=== PATIENT | male | born 1975 | race Caucasian/White ===

== ENCOUNTER 2019-02-03 02:49 | Emergency (ER) | payer OTHER ==
[~2019-02-03] VITALS: Ht 175.3 cm; Wt 68.0 kg
[2019-02-03] MEDS ORDERED: DEPRESSION MED (03:14)
[2019-02-03] MEDS ORDERED: LIPITOR10 MG (03:14)
[2019-02-03 03:39] LABS: ABSOLUTE EOSINOPHILS 0.4 thou/uL (0.0-0.7); ABSOLUTE LYMPHOCYTES 1.8 thou/uL (0.8-5.3); ABSOLUTE MONOCYTES 0.5 thou/uL (0.0-1.2); ABSOLUTE NEUTROPHILS 2.7 thou/uL (1.6-8.1); BASOPHILS 0.8 %; EOSINOPHILS 8.1 %; HEMATOCRIT 40.6 % (42.0-52.0); HEMOGLOBIN 13.8 gm/dL (14.0-18.0); LYMPHOCYTES 32.2 %; MCH 30.6 pg (26.0-34.0); MCHC 33.8 g/dL (28.0-37.0); MCV 90.3 fL (80.0-100.0); MONOCYTES 9.3 %; NUCLEATED RBCS 0 /100WBC; PLATELET COUNT* 202 thou/uL (150-400); POLYS 49.6 %; RDW-CV 13.5 % (10.5-14.5); WBC 5.5 thou/uL (4.0-11.0)
[2019-02-03 04:03] LABS: CALCIUM 8.9 mg/dL (8.5-10.1); CREATININE 0.9 mg/dL (0.6-1.3); POTASSIUM 3.6 mmol/L (3.5-5.1)
[2019-02-03 04:07] LABS: ALBUMIN 3.4 g/dL (3.4-5.0); TOTAL BILIRUBIN 0.2 mg/dL (<0.1-1.0)
[2019-02-03 07:30] VITALS: BP 100/66
--- NOTE | 2019-02-04 13:48 | EKG ---
[place] [address] ELECTROCARDIOGRAM REPORT Name: DONNY PEREA 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
== END 2019-02-03 07:34 | disposition home or self-care (01) ==
LOC: M.ERS 02:49
PROVIDERS: Emergency Medicine
DX: F10.129 Alcohol abuse with intoxication, unspecified (principal); F32.9 Major depressive disorder, single episode, unspecified; Z88.0 Allergy status to penicillin

== ENCOUNTER 2019-03-13 18:43 | Emergency (ER) | payer OTHER ==
[~2019-03-13] VITALS: Ht 177.8 cm; Wt 68.0 kg
[~2019-03-13 18:43] MED LIST: DEPRESSION MED; LIPITOR10 MG
[2019-03-13 19:42] LABS: ABSOLUTE BASOPHILS 0.1 thou/uL (0.0-0.2); ABSOLUTE EOSINOPHILS 0.1 thou/uL (0.0-0.7); ABSOLUTE LYMPHOCYTES 1.5 thou/uL (0.8-5.3); ABSOLUTE MONOCYTES 0.5 thou/uL (0.0-1.2); ABSOLUTE NEUTROPHILS 4.8 thou/uL (1.6-8.1); BASOPHILS 0.8 %; HEMATOCRIT 48.5 % (42.0-52.0); HEMOGLOBIN 16.8 gm/dL (14.0-18.0); LYMPHOCYTES 21.2 %; MCH 31.3 pg (26.0-34.0); MCHC 34.8 g/dL (28.0-37.0); MCV 90.1 fL (80.0-100.0); MONOCYTES 7.3 %; MPV 6.7 fl. (7.2-11.1); NUCLEATED RBCS 0 /100WBC; PLATELET COUNT* 238 thou/uL (150-400); POLYS 68.7 %; RBC 5.38 mil/uL (4.50-6.00); RDW-CV 12.9 % (10.5-14.5)
[2019-03-13 19:50] LABS: CALCIUM 9.6 mg/dL (8.5-10.1); POTASSIUM 4.1 mmol/L (3.5-5.1)
[2019-03-13 19:55] LABS: ALBUMIN 4.2 g/dL (3.4-5.0); TOTAL BILIRUBIN 0.4 mg/dL (<0.1-1.0); TOTAL PROTEIN 7.5 g/dL (6.4-8.2)
[2019-03-13] MEDS ORDERED: CHLORDIAZEPOXID25 M1 PO (22:06)
[2019-03-13 22:33] VITALS: BP 145/91
--- NOTE | 2019-03-15 12:25 | EKG ---
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[place] : 1975 Requested By: Val Davidson Order Number: [id number] MD: Mario Gonzalez Measurements Intervals [place] Rate: 96 P: 71 [place]: 136 QRS: 84 QRSD: 94 T: 49 QT: 352 QTc: 445 Interpretive Statements Sinus rhythm ST elev, probable normal early repol pattern Baseline wander in lead(s) V2,V5,V6 Compared to ECG 02/03/2019 03:00:14 ST (T wave) deviation now present Sinus tachycardia no longer present Electronically Signed On 03-15-2019 12:25:18 CDT by Mario Gonzalez [email or web address] <ELECTRONICALLY SIGNED> By: Mario Gonzalez MD, FACC 03/15/19 1225 16 16 Mario Gonzalez MD, [facility] /EPI
== END 2019-03-13 22:59 | disposition home or self-care (01) ==
LOC: M.ERS 18:43
PROVIDERS: Personal Emergency Response Attendant
DX: F10.129 Alcohol abuse with intoxication, unspecified (principal); R11.2 Nausea with vomiting, unspecified; F32.9 Major depressive disorder, single episode, unspecified; Z88.0 Allergy status to penicillin; Y90.0 Blood alcohol level of less than 20 mg/100 ml

== ENCOUNTER 2020-07-16 06:54 | Emergency (ER) | payer OTHER ==
[~2020-07-16] VITALS: Ht 175.3 cm; Wt 65.8 kg
[~2020-07-16 06:54] MED LIST changes: +CHLORDIAZEPOXID25 M1 PO
[2020-07-16 07:40] LABS: ABSOLUTE BASOPHILS 0.1 thou/uL (0.0-0.2); ABSOLUTE LYMPHOCYTES 1.4 thou/uL (0.8-5.3); ABSOLUTE MONOCYTES 0.6 thou/uL (0.0-1.2); BASOPHILS 0.8 %; EOSINOPHILS 0.5 %; HEMATOCRIT 43.7 % (42.0-52.0); HEMOGLOBIN 15.3 gm/dL (14.0-18.0); LYMPHOCYTES 19.8 %; MCH 30.7 pg (26.0-34.0); MCHC 35.1 g/dL (28.0-37.0); MCV 87.5 fL (80.0-100.0); MPV 6.7 fl. (7.2-11.1); NUCLEATED RBCS 0 /100WBC; PLATELET COUNT* 248 thou/uL (150-400); POLYS 69.9 %; RBC 4.99 mil/uL (4.50-6.00); RDW-CV 12.8 % (10.5-14.5); WBC 7.2 thou/uL (4.0-11.0)
[2020-07-16 07:52] LABS: APTT 22.7 Seconds (25.0-31.3); INR < 0.9; PROTIME 9.6 Seconds (9.20-11.50)
[2020-07-16 07:53] LABS: CALCIUM 8.7 mg/dL (8.5-10.1); CREATININE 0.8 mg/dL (0.6-1.3); POTASSIUM 3.8 mmol/L (3.5-5.1)
[2020-07-16 08:14] LABS: ALBUMIN 3.8 g/dL (3.4-5.0); MAGNESIUM 1.8 mg/dL (1.8-2.4); TOTAL PROTEIN 6.7 g/dL (6.4-8.2)
[2020-07-16] MEDS ORDERED: NEURONTIN 400400 M1 PO (09:00)
[2020-07-16] MEDS ORDERED: ZOFRAN ODT4 MG DISSOLVE (09:00)
[2020-07-16 09:53] VITALS: BP 131/83
--- NOTE | 2020-07-16 17:35 | EKG ---
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[facility] : 1975 Requested By: Manjeet Durán Order Number: [id number] MD: Mario Gonzalez Measurements Intervals [place] Rate: 78 P: 76 [place]: 124 QRS: 88 QRSD: 89 T: 51 QT: 364 QTc: 415 Interpretive Statements Sinus rhythm Baseline wander in lead(s) II,aVF Compared to ECG 03/13/2019 20:17:12 no change Electronically Signed On 07-16-2020 17:35:28 INTERNATIONAL SOURCING MANAGER by Maroi Gonzalez [email or web address] <ELECTRONICALLY SIGNED> By: Mario Gonzalez MD, [facility] 07/16/20 1735 0707 0707 Mario Gonzalez MD, [facility] /EPI
== END 2020-07-16 09:54 | disposition home or self-care (01) ==
LOC: M.ERS 06:54
PROVIDERS: Emergency Medicine Emergency Medical Services
DX: F10.239 Alcohol dependence with withdrawal, unspecified (principal); R42 Dizziness and giddiness; R56.9 Unspecified convulsions; R06.02 Shortness of breath; Z88.0 Allergy status to penicillin; Y90.9 Presence of alcohol in blood, level not specified

== ENCOUNTER 2021-07-01 19:01 | Emergency (ER) | payer BC ==
[~2021-07-01] VITALS: Ht 177.8 cm; Wt 63.5 kg
[~2021-07-01 19:01] MED LIST changes: +NEURONTIN 400400 M1 PO; +ZOFRAN ODT4 MG DISSOLVE
[2021-07-01] MEDS ORDERED: LITHATE20 MG PO (19:14)
[2021-07-01 19:53] LABS: HEMATOCRIT 45.3 % (42.0-52.0); MCH 31.1 pg (26.0-34.0); MCHC 35.4 g/dL (28.0-37.0); MCV 87.8 fL (80.0-100.0); MPV 6.6 fl. (7.2-11.1); RBC 5.16 mil/uL (4.50-6.00); RDW-CV 12.8 % (10.5-14.5); WBC 6.2 thou/uL (4.0-11.0)
[2021-07-01 19:58] LABS: CALCIUM 8.7 mg/dL (8.5-10.1); CREATININE 0.8 mg/dL (0.6-1.3); POTASSIUM 3.7 mmol/L (3.5-5.1)
[2021-07-01 20:03] LABS: ALBUMIN 4.3 g/dL (3.4-5.0); ALCOHOL 336 mg/dL (<10); SALICYLATE < 2.8 mg/dL (2.8-20.0); TOTAL BILIRUBIN 0.6 mg/dL (<0.1-1.0); TOTAL PROTEIN 7.3 g/dL (6.4-8.2)
[2021-07-01 20:07] LABS: ACETAMINOPHEN < 2 ug/mL (10-30)
[2021-07-01 20:52] LABS: URINE BILIRUBIN NEGATIVE (Negative); URINE BLOOD 1+ (Negative); URINE COLOR YELLOW; URINE GLUCOSE-RANDOM NEGATIVE (Negative); URINE KETONES 1+ (Negative); URINE LEUKOCYTES NEGATIVE (Negative); URINE NITRITE NEGATIVE (Negative); URINE PROTEIN TRACE (Negative); URINE UROBILINOGEN 0.2 E.U./dl (0.2-1.0)
[2021-07-01 20:54] LABS: BACTERIA None Seen /HPF (None Seen); CASTS None Seen /LPF (None Seen); CRYSTALS None Seen /LPF (None Seen); SQUAMOUS 0-3 Few /LPF (0-3); URINE CLARITY HAZY; URINE RBC 0-2 Rare /HPF (0-2); URINE WBC None Seen /HPF (0-5)
[2021-07-01 21:01] LABS: AMP/METHAMP Negative (Negative); BARBITURATES Negative (Negative); BENZODIAZEPINES Negative (Negative); COCAINE Negative (Negative); METHADONE Negative (Negative); OPIATES Negative (Negative); PCP Negative (Negative); THC Negative (Negative)
[2021-07-01 21:02] VITALS: BP 112/70
--- NOTE | 2021-07-02 09:13 | EKG ---
[place] [address] ELECTROCARDIOGRAM REPORT Name: SATNAMBenjieDONNY SAMANTHA Room: [facility]#: [id number] Admission: 07/01/21 Attend Phys: Discharge: 07/01/21 Date of : 71 Date of Service: 07/01/211958 Report #: [id number] THIS REPORT FOR: //name// 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 : 1975 Requested By: Samantha Martinez Order Number: [id number] MD: Mario Gonzalez Measurements Intervals [place] Rate: 88 P: 67 [place]: 139 QRS: 83 QRSD: 99 T: 29 QT: 359 QTc: 435 Interpretive Statements Sinus rhythm ST elev, probable normal early repol pattern Baseline wander in lead(s) I,III,aVL,V5 Compared to ECG 07/16/2020 07:07:56 no change Electronically Signed On 07-02-2021 9:13:41 SAMPLE SEWER by Maroi Gonzalez [email or web address] <ELECTRONICALLY SIGNED> By: Mario Gonzalez MD, FAC 07/02/21912 58 58 Mario Gonzalez MD, FAC /EPI
== END 2021-07-01 21:03 | disposition home or self-care (01) ==
LOC: M.ERS 19:01
PROVIDERS: Personal Emergency Response Attendant
DX: F10.920 Alcohol use, unspecified with intoxication, uncomplicated (principal); F32.9 Major depressive disorder, single episode, unspecified; Y90.8 Blood alcohol level of 240 mg/100 ml or more; Z79.899 Other long term (current) drug therapy; Z88.0 Allergy status to penicillin